=== PATIENT | male | born 1950 | race African-American/Black ===

== ENCOUNTER 2024-07-24 16:36 | Emergency (ER) | payer MEDICARE ==
[~2024-07-24] VITALS: Ht 170.2 cm; Wt 73.0 kg
[2024-07-24 16:43] VITALS: O2SAT 100
[2024-07-24 17:43] VITALS: TEMP 36.5
[2024-07-24] MEDS: KETOROLAC 15MG/ML VIAL IM NR (22:32)
[2024-07-25 00:40] VITALS: BP 133/65; PULSE 81; RESP 12; O2SAT 99
== END 2024-07-25 01:06 ==
LOC: ER 16:36
DX: M19.041 Primary osteoarthritis, right hand (principal); I10 Essential (primary) hypertension; E11.9 Type 2 diabetes mellitus without complications; F41.9 Anxiety disorder, unspecified; F03.90 Unspecified dementia, unspecified severity, without behavioral disturbance, psychotic disturbance, mood disturbance, and anxiety; Z86.73 Personal history of transient ischemic attack (TIA), and cerebral infarction without residual deficits
CPT/HCPCS: 99285; 93971; 73130; 96372; J1885

== ENCOUNTER 2024-08-18 14:31 | Inpatient (IN) | payer MEDICARE ==
[~2024-08-18] VITALS: Ht 182.9 cm; Wt 66.3 kg
[2024-08-18] MEDS: INSULIN GLARGINE 100 UNITS/ML SUBCUT SCH (10:00)
[2024-08-18 15:29] LABS: CHLORIDE 106 mEq/L (98-107); POTASSIUM 4.3 mEq/L (3.5-5.1); SODIUM 142 mEq/L (136-145)
[2024-08-18 15:30] LABS: CARBON DIOXIDE 27 mEq/L (21-32)
[2024-08-18 15:31] LABS: CALCIUM 8.2 mg/dL (8.7-10.4)
[2024-08-18 15:35] LABS: CREATININE 3.3 mg/dL (0.6-1.3); GLUCOSE 138 mg/dL (70-105); UREA NITROGEN BLOOD 72 mg/dL (9-23)
[2024-08-18 15:39] LABS: BASOPHILS % 0.7 % (0.0-2.0); EOSINOPHILS % 5.9 % (0.0-5.0); LYMPHOCYTES % 21.2 % (20.0-50.0); MEAN CORPUSCULAR HEMOGLOBIN 28.5 pg (28.0-32.0); MEAN CORPUSCULAR HGB CONC 33.3 g/dL (31.0-37.0); MEAN CORPUSCULAR VOLUME 85.7 fL (80.0-94.0); MEAN PLATELET VOLUME 8.4 fl (7.4-10.4); MONOCYTES % 7.8 % (2.0-8.0); NEUTROPHILS % 64.4 % (40.0-76.0); PLATELET 232 x1000/uL (130-400); RED BLOOD CELL COUNT 2.44 mill/uL (4.7-6.1); RED CELL DISTRIBUTION WIDTH 13.6 % (11.6-14.6)
[2024-08-18 15:44] LABS: TROPONIN I HIGH SENSITIVITY 2120 ng/L (3.0-53)
[2024-08-18] MEDS: ASPIRIN 325MG EC TABLET PO ONE (16:29)
[2024-08-18] MEDS ORDERED: ENOXAPARIN 60MG/0.6ML SYR SUBCUT ONE (16:30)
[2024-08-18 17:14] LABS: TROPONIN I HIGH SENSITIVITY 2060 ng/L (3.0-53)
[2024-08-18] MEDS ORDERED: ACETAMINOPHEN 325MG TABLET PO PRN ×2 (17:30)
[2024-08-18] MEDS ORDERED: DEXTROSE 50% WATER 50ML SYRINGE IV PRN (17:30)
[2024-08-18] MEDS ORDERED: ONDANSETRON HCL 4MG/2ML INJ IV PRN (17:30)
[2024-08-18] MEDS ORDERED: NITROGLYCERIN 0.4MG TABLET SL SL PRN (17:30)
[2024-08-18] MEDS ORDERED: MAGNESIUM/ALUMINUM HYDROXIDE/SIMETHICONE 30ML UDC PO PRN (17:30)
[2024-08-18] MEDS ORDERED: MORPHINE SULFATE 4 MG/ML INJ (FOR IV/IM USE) IV PRN (17:30)
[2024-08-18] MEDS ORDERED: GUAIFENESIN 200MG/10ML SUGAR FREE UDC PO PRN (17:30)
[2024-08-18] MEDS ORDERED: IPRATROPIUM/ALBUTEROL 0.5-3(2.5)MG/3ML NEB HHN PRN (17:30)
[2024-08-18] MEDS ORDERED: DOCUSATE SODIUM 100MG CAPSULE PO PRN (17:30)
[2024-08-18] MEDS ORDERED: CLONIDINE 0.1MG TABLET PO PRN (17:30)
[2024-08-18] MEDS ORDERED: CARV6.2548 PO (17:48)
[2024-08-18] MEDS ORDERED: ATOR40TA70 PO (17:48)
[2024-08-18] MEDS ORDERED: FAMO20TA8 PO (17:48)
[2024-08-18] MEDS ORDERED: NIFE-33 PO (17:48)
[2024-08-18] MEDS ORDERED: FURO40TA5 PO (17:48)
[2024-08-18] MEDS: INSULIN LISPRO 100 UNITS/ML SUBCUT SCH ×2 (17:50→18:20)
[2024-08-18 18:00] VITALS: BP 134/70; PULSE 66; RESP 12; TEMP 36.7; O2SAT 100
[2024-08-18] MEDS ORDERED: NALOXONE HCL 0.4MG/ML VIAL IV PRN (18:00)
[2024-08-18 18:10] VITALS: BP 124/69; PULSE 66; RESP 12; TEMP 36.8
[2024-08-18] MEDS: ASPIRIN 325MG EC TABLET PO STA (18:25)
[2024-08-18] MEDS: FAMOTIDINE 20MG TABLET PO SCH (18:40)
[2024-08-18 18:46] LABS: PHOSPHORUS 4.3 mg/dL (2.5-4.9)
[2024-08-18 20:00] VITALS: BP 133/66; PULSE 63; RESP 10; TEMP 36.3
[2024-08-18] MEDS: BLOOD SUGAR DIAGNOSTIC STRIP TEST SCH (21:10)
[2024-08-18] MEDS: ATORVASTATIN CALCIUM 40MG TABLET PO SCH (21:12)
[2024-08-18] MEDS: FUROSEMIDE 40MG TABLET PO SCH (21:12)
[2024-08-18] MEDS: CARVEDILOL 6.25 MG TABLET PO SCH (21:12)
[2024-08-18 22:00] VITALS: BP 139/70; PULSE 70; RESP 13; O2SAT 100
[2024-08-19] VITALS (11 sets, daily range): BP systolic 118–141; BP diastolic 60–95; PULSE 67–87; RESP 11–22; TEMP 36.3–37; O2SAT 97–100
[2024-08-19 00:26] LABS: CREATINE KINASE MB FRACTION 1.9 ng/mL (0.5-3.6)
[2024-08-19 07:06] LABS: BASOPHILS % 0.5 % (0.0-2.0); EOSINOPHILS % 5.4 % (0.0-5.0); HEMATOCRIT. 21.6 % (42.0-52.0); HEMOGLOBIN. 7.2 g/dL (14.0-18.0); LYMPHOCYTES % 15.7 % (20.0-50.0); MEAN CORPUSCULAR HEMOGLOBIN 28.5 pg (28.0-32.0); MEAN CORPUSCULAR HGB CONC 33.4 g/dL (31.0-37.0); MEAN CORPUSCULAR VOLUME 85.3 fL (80.0-94.0); MEAN PLATELET VOLUME 8.6 fl (7.4-10.4); MONOCYTES % 8.5 % (2.0-8.0); NEUTROPHILS % 69.9 % (40.0-76.0); PLATELET 221 x1000/uL (130-400); RED BLOOD CELL COUNT 2.53 mill/uL (4.7-6.1); RED CELL DISTRIBUTION WIDTH 13.7 % (11.6-14.6)
[2024-08-19 07:26] LABS: CALCIUM 8.3 mg/dL (8.7-10.4); POTASSIUM 3.8 mEq/L (3.5-5.1)
[2024-08-19 07:32] LABS: CREATININE 3.1 mg/dL (0.6-1.3)
[2024-08-19 07:34] LABS: T4 FREE 1.12 ng/dL (0.89-1.76); THYROID STIMULATING HORMONE 1.05 uIU/mL (0.55-4.78)
[2024-08-19] MEDS ORDERED: FUROSEMIDE 40MG TABLET PO SCH (09:00)
[2024-08-19] MEDS ORDERED: FAMOTIDINE(NEO) 1MG/ML SUSP PO SCH (09:00)
[2024-08-19] MEDS: MEMANTINE HCL 5MG TABLET PO SCH (09:00)
[2024-08-19] MEDS: ASPIRIN 81MG EC TABLET PO SCH (09:16)
[2024-08-19] MEDS: FOLIC ACID 1MG TABLET PO SCH (09:16)
[2024-08-19] MEDS: THIAMINE HCL 100MG TABLET PO SCH (09:16)
[2024-08-19] MEDS: NIFEDIPINE XL 30MG TAB PO SCH (09:17)
[2024-08-19 13:04] LABS: CLARITY URINE CLEAR (CLEAR); COLOR URINE YELLOW (YELLOW); GLUCOSE URINE NEGATIVE (NEGATIVE); KETONES URINE NEGATIVE (NEGATIVE); LEUKOCYTE ESTERASE URINE TRACE (NEGATIVE); NITRITE URINE NEGATIVE (NEGATIVE); OCCULT BLOOD URINE NEGATIVE (NEGATIVE); PH URINE 8.5 (4.5-8.0); PROTEIN URINE 1+ (NEGATIVE); UROBILINOGEN URINE 0.2 E.U./dL (0.2-1.0)
[2024-08-19 13:17] LABS: BACTERIA URINE 1+; RBC URINE 0-2 /hpf (0-2); SQUAMOUS EPITHELIAL CELL URINE 1+ /lpf (RARE/1+); TRIPLE PHOSPHATE CRYSTAL URINE 1+ /lpf; WBC URINE 0-2 /hpf (0-2); YEAST URINE NONE SEEN
[2024-08-19 13:18] LABS: *AMPHETAMINES SCREEN URINE NEGATIVE (NEGATIVE); *BARBITURATES SCREEN URINE NEGATIVE (NEGATIVE); *BENZODIAZEPINES SCREEN URINE NEGATIVE (NEGATIVE); *COCAINE SCREEN URINE NEGATIVE (NEGATIVE); METHADONE URINE SCREEN NEGATIVE (NEGATIVE); OPIATES URINE SCREEN NEGATIVE (NEGATIVE)
[2024-08-19 13:19] LABS: CANNABINOID URINE SCREEN NEGATIVE (NEGATIVE); ECSTASY MDMA SCREEN URINE NEGATIVE (NEGATIVE); PHENCYCLIDINE URINE SCREEN NEGATIVE (NEGATIVE)
[2024-08-19 17:07] LABS: HEMATOCRIT 24.9 % (42.0-52.0); HEMOGLOBIN 8.5 g/dL (14.0-18.0)
[2024-08-19 17:27] LABS: IRON 50 ug/dL (65-175)
[2024-08-19 17:30] LABS: CREATINE KINASE 132 IU/L (46-171); TOTAL IRON BINDING CAPACITY 294 ug/dl (250-425)
[2024-08-19 17:31] LABS: FOLIC ACID (FOLATE) SERUM 14.51 ng/mL (>5.38); VITAMIN B12 SERUM 319 pg/mL (211-911)
[2024-08-19 17:32] LABS: FERRITIN 111 ng/mL (22-322)
[2024-08-19] MEDS: HALOPERIDOL LACTATE 5MG/ML VIAL IM NR (20:45)
[2024-08-19] MEDS: HYDROCODONE/ACETAMINOPHEN 5/325MG TABLET PO PRN (20:48)
[2024-08-20] VITALS: BP 110/60; PULSE 64; RESP 13; TEMP 36.4
[2024-08-20 04:00] VITALS: BP 115/81; PULSE 73; RESP 15; TEMP 36.8; O2SAT 99
[2024-08-20 08:00] VITALS: BP 125/85; PULSE 73; RESP 13; TEMP 36.3; O2SAT 100
[2024-08-20 10:41] LABS: BASOPHILS % 0.7 % (0.0-2.0); EOSINOPHILS % 6.5 % (0.0-5.0); HEMATOCRIT. 23.5 % (42.0-52.0); LYMPHOCYTES % 22.4 % (20.0-50.0); MEAN CORPUSCULAR HEMOGLOBIN 28.9 pg (28.0-32.0); MEAN CORPUSCULAR HGB CONC 33.8 g/dL (31.0-37.0); MEAN CORPUSCULAR VOLUME 85.4 fL (80.0-94.0); MEAN PLATELET VOLUME 8.5 fl (7.4-10.4); MONOCYTES % 9.2 % (2.0-8.0); NEUTROPHILS % 61.2 % (40.0-76.0); PLATELET 207 x1000/uL (130-400); RED BLOOD CELL COUNT 2.76 mill/uL (4.7-6.1); RED CELL DISTRIBUTION WIDTH 14.1 % (11.6-14.6); WHITE BLOOD COUNT 5.3 x1000/uL (4.5-11.0)
[2024-08-20 10:49] LABS: CALCIUM 8.2 mg/dL (8.7-10.4)
[2024-08-20 10:54] LABS: CREATININE 3.5 mg/dL (0.6-1.3)
[2024-08-20 11:32] LABS: TROPONIN I HIGH SENSITIVITY 1105 ng/L (3.0-53)
[2024-08-20 12:00] VITALS: BP 125/65; PULSE 66; RESP 14; TEMP 36.4; O2SAT 100
[2024-08-20 16:00] VITALS: BP 119/71; PULSE 76; RESP 15; TEMP 36.4; O2SAT 100
[2024-08-20 20:00] VITALS: BP 122/71; PULSE 65; RESP 12; TEMP 36.7
[2024-08-21] VITALS (7 sets, daily range): BP systolic 126–156; BP diastolic 60–91; PULSE 63–86; RESP 13–24; TEMP 36.1–36.8; O2SAT 99–100
[2024-08-21 06:18] LABS: CALCIUM 8.2 mg/dL (8.7-10.4)
[2024-08-21 06:24] LABS: CREATININE 3.6 mg/dL (0.6-1.3)
[2024-08-21 06:35] LABS: BASOPHILS % 0.5 % (0.0-2.0); EOSINOPHILS % 6.2 % (0.0-5.0); HEMATOCRIT. 22.8 % (42.0-52.0); HEMOGLOBIN. 7.6 g/dL (14.0-18.0); LYMPHOCYTES % 29.8 % (20.0-50.0); MEAN CORPUSCULAR HEMOGLOBIN 28.7 pg (28.0-32.0); MEAN CORPUSCULAR HGB CONC 33.5 g/dL (31.0-37.0); MEAN CORPUSCULAR VOLUME 85.6 fL (80.0-94.0); MEAN PLATELET VOLUME 8.8 fl (7.4-10.4); MONOCYTES % 8.3 % (2.0-8.0); NEUTROPHILS % 55.2 % (40.0-76.0); PLATELET 194 x1000/uL (130-400); RED BLOOD CELL COUNT 2.66 mill/uL (4.7-6.1); RED CELL DISTRIBUTION WIDTH 13.6 % (11.6-14.6); WHITE BLOOD COUNT 4.8 x1000/uL (4.5-11.0)
[2024-08-21 12:25] LABS: HEPATITIS B SURFACE ANTIGEN NEGATIVE (Negative)
[2024-08-21 12:46] LABS: HEPATITIS A AB IGM NEGATIVE (Negative); HEPATITIS B CORE AB IGM NEGATIVE (Negative)
[2024-08-21 12:47] LABS: HEPATITIS C AB NON REACTIVE (Neg) (Negative)
[2024-08-21] MEDS: FUROSEMIDE 40MG TABLET PO SCH (14:30)
[2024-08-21] MEDS: FERROUS SULFATE 325MG TABLET PO SCH (18:13)
[2024-08-21] MEDS: SENNOSIDES/DOCUSATE SOD 8.6/50MG TABLET PO NR (21:55)
[2024-08-22] VITALS: BP 133/72; PULSE 71; RESP 17; TEMP 36.8; O2SAT 98
[2024-08-22 02:00] VITALS: BP 144/77; PULSE 69; RESP 16; O2SAT 99
[2024-08-22 04:00] VITALS: BP 140/78; PULSE 67; RESP 14; TEMP 36.8; O2SAT 100
[2024-08-22 06:12] LABS: COMPLEMENT C3 116 mg/dL (82-167); COMPLEMENT C4 15 mg/dL (12-38)
[2024-08-22 06:23] LABS: BASOPHILS % 0.1 % (0.0-2.0); EOSINOPHILS % 6.7 % (0.0-5.0); HEMATOCRIT. 24.4 % (42.0-52.0); HEMOGLOBIN. 8.1 g/dL (14.0-18.0); LYMPHOCYTES % 31.2 % (20.0-50.0); MEAN CORPUSCULAR HEMOGLOBIN 28.2 pg (28.0-32.0); MEAN CORPUSCULAR VOLUME 85.7 fL (80.0-94.0); MONOCYTES % 7.1 % (2.0-8.0); NEUTROPHILS % 54.9 % (40.0-76.0); PLATELET 218 x1000/uL (130-400); RED BLOOD CELL COUNT 2.85 mill/uL (4.7-6.1); RED CELL DISTRIBUTION WIDTH 13.8 % (11.6-14.6); WHITE BLOOD COUNT 4.6 x1000/uL (4.5-11.0)
[2024-08-22 06:24] LABS: CHLORIDE 106 mEq/L (98-107); SODIUM 139 mEq/L (136-145)
[2024-08-22 06:25] LABS: CALCIUM 8.5 mg/dL (8.7-10.4); CARBON DIOXIDE 26 mEq/L (21-32)
[2024-08-22 06:29] LABS: UREA NITROGEN BLOOD 70 mg/dL (9-23)
[2024-08-22 06:30] LABS: CREATININE 3.5 mg/dL (0.6-1.3); GLUCOSE 109 mg/dL (70-105); PROTEIN TOTAL 6.8 g/dL (6.0-8.3)
[2024-08-22 06:31] LABS: ALBUMIN 3.6 g/dL (3.2-4.8)
[2024-08-22 06:32] LABS: ALANINE AMINOTRANSFERASE 19 IU/L (10-49); ASPARTATE AMINOTRANSFERASE 21 IU/L (<34); BILIRUBIN DIRECT < 0.1 mg/dL (<=3.0); LACTATE DEHYDROGENASE 201 IU/L (120-246)
[2024-08-22 06:33] LABS: BILIRUBIN TOTAL 0.2 mg/dL (0.1-1.0)
[2024-08-22 08:00] VITALS: BP 134/78; PULSE 73; RESP 9; TEMP 36.7; O2SAT 100
[2024-08-22] MEDS ORDERED: FOLI-43 PO (08:00)
[2024-08-22] MEDS ORDERED: ASPI-1406 PO (08:00)
[2024-08-22] MEDS ORDERED: FERR-63 PO (08:00)
[2024-08-22] MEDS ORDERED: FURO40TA5 PO (08:00)
[2024-08-22] MEDS ORDERED: THIA100T72 PO (08:00)
[2024-08-22] MEDS: POLYETHYLENE GLYCOL 3350 (17GM) 1 DOSE PACK PO SCH (08:34)
[2024-08-22] MEDS: MAGNESIUM 2 G PREMIX 50 ML IV SCH (09:42)
[2024-08-22 12:00] VITALS: BP 137/77; PULSE 74; RESP 12; TEMP 36.4; O2SAT 98
[2024-08-22 12:49] VITALS: BP 137/77; PULSE 73; TEMP 97.5; O2SAT 98
[2024-08-22 17:07] LABS: ANTI-NUCLEAR ANTIBODIES DIRECT Negative (Negative)
== END 2024-08-22 13:30 | DRG 682 ==
LOC: ER 14:31 → 5EST 16:17 → EDBEDREQSVC 16:18 → EDBEDREQ 16:18
PROVIDERS: ADMIT Internal Medicine; ATTEND Internal Medicine
PROC: 30233N1 Transfusion of Nonautologous Red Blood Cells into Peripheral Vein, Percutaneous Approach (ICD-10-PCS; principal; 2024-08-19)
DX: N17.9 Acute kidney failure, unspecified (principal); I21.A1 Myocardial infarction type 2; I50.30 Unspecified diastolic (congestive) heart failure; I13.0 Hypertensive heart and chronic kidney disease with heart failure and stage 1 through stage 4 chronic kidney disease, or unspecified chronic kidney disease; I69.351 Hemiplegia and hemiparesis following cerebral infarction affecting right dominant side; D50.9 Iron deficiency anemia, unspecified; N18.4 Chronic kidney disease, stage 4 (severe); F41.9 Anxiety disorder, unspecified; M79.602 Pain in left arm; F03.90 Unspecified dementia, unspecified severity, without behavioral disturbance, psychotic disturbance, mood disturbance, and anxiety; E11.22 Type 2 diabetes mellitus with diabetic chronic kidney disease; M25.551 Pain in right hip; M25.552 Pain in left hip; Z79.4 Long term (current) use of insulin; Z79.82 Long term (current) use of aspirin; Z79.899 Other long term (current) drug therapy
CPT/HCPCS: 36415; 71045; 76770; 80048; 80061; 80076; 80305; 81003; 82248; 82270; 82550; 82553; 82607; 82728; 82746; 82962; 83036; 83540; 83550; 83615; 83735; 83880; 84100; 84439; 84443; 84484; 85014; 85018; 85025; 85044; 86038; 86160; 86705; 86709; 86850; 86900; 86920; 87340; 93005; 93306; 97162; 97166; 99285; A4606; J1630; J1815; J3475; P9016